=== PATIENT | female | born 1965 ===

== ENCOUNTER 2021-02-05 09:35 | Outpatient (CLI) | payer BC ==
--- NOTE | 2021-02-05 10:11 | XRay Report ---
RIGHT SHOULDER HISTORY: Pain. COMPARISON: None. TECHNIQUE: 3 views of the right shoulder were obtained. FINDINGS: Bones: No fracture or dislocation. Joint spaces: Maintained. Soft tissues: No significant abnormality. Additional findings: None. IMPRESSION: Unremarkable right shoulder radiographs. No evidence of acute osseous injury or significant degenerat rashawn change. Signer Name: Bartolo Chicas MD Signed: 02/05/2021 10:06 AM Workstation Name: [id number]
== END 2021-02-05 09:36 | disposition home or self-care (01) ==
LOC: XRAY 09:35
PROVIDERS: ATTEND Internal Medicine
DX: M25.511 Pain in right shoulder (principal)